=== PATIENT | female | born 1990 | race Caucasian/White ===

== ENCOUNTER 2017-03-13 17:46 | Emergency (ER) | payer OTHER ==
[~2017-03-13] VITALS: Ht 157.5 cm; Wt 49.9 kg
[~2017-03-13 17:46] MED LIST: AMBIEN10 MG PO; AMBIEN12.5 MG PO; AMBIEN5 MG PO; ATARAX HCL25 MG PO; ATIVAN1 M1 PO; ATIVAN1 MG PO; CEPHALEXIN500 M2 PO; CLARITIN10 MG PO; DASETTA PO; DILANTIN100 M1 PO; ETODOLAC ER400 MG PO; ETODOLAC400 M2 PO; FLEXERIL10 MG PO; HYDROCODONE BIT PO; HYDROCODONE BIT1 T52 PO; INDERAL20 M1 PO; KEPPRA500 MG PO; KLONOPIN1 MG PO; MAXALT10 MG PO; NEURONTIN100 MG PO; NEURONTIN300 MG PO; NEURONTIN600 MG PO; NORCO 5/325 MG1 TAB PO; ORTHO TRI-CYCLE1 TA1 PO; PERCOCET 5/3251 TAB PO; PRILOSEC40 MG PO; PROZAC10 MG PO; TRI CYCLEN PO; ULTRAM50 MG PO; VIMPAT200 MG PO; VOLTAREN75 M1 PO; XANAX1 MG PO; ZANTAC150 MG PO
--- NOTE | 2017-03-13 17:46 | NUR ---
Patient was BIBA at this time.
[2017-03-13 17:54] VITALS: BP 113/72
--- NOTE | 2017-03-13 19:10 | NUR ---
Dr. pérez evaluating patient.
[2017-03-13] MEDS ORDERED: MORPHINE SULFATE 4 MG/ML SYR IM ONE ×2 (19:25→21:00)
[2017-03-13] MEDS ORDERED: METHOCARBAMOL 500 MG TAB PO SCH (19:25)
--- NOTE | 2017-03-13 19:29 | NUR ---
PT TAKEN TO BED 6
--- NOTE | 2017-03-13 19:30 | NUR ---
27 Y/O F BIBA FOR EVALUATION OF LBP S/P L5 FUSION 2 WEEKS AGO. HX SEIZURE DISORDER, FIBROMYALGIA, PTSD, ANXIETY. C/O PAIN 10/10 AT THE MOMENT. NO S/S OF DISTRESS NOTED AT THE MOMENT.
--- NOTE | 2017-03-13 19:52 | NUR ---
PT TAKEN OFF THE UNIT TO CT VIA WHEELCHAIR ACCOMPANIED BY JENELLE BIRCH
--- NOTE | 2017-03-13 20:02 | NUR ---
PT BACK ON UNIT FROM HAVING CT DONE.
[2017-03-13] MEDS ORDERED: KETOROLAC 30 MG/ML VIAL IVP ONE (20:50)
[2017-03-13 21:23] VITALS: BP 109/71
--- NOTE | 2017-03-13 21:24 | NUR ---
Patient discharged with v/s stable. Written and verbal after care instructions given and explained. Patient alert, oriented and verbalized understanding of instructions. Ambulatory with steady gait. All questions addressed prior to discharge. ID band removed. Patient advised to follow up with PMD. Rx of ROBAXIN given. Patient educated on indication of medication including possible reaction and side effects. Opportunity to ask questions provided and answered.
== END 2017-03-13 21:24 | disposition home or self-care (01) ==
LOC: MED 17:46
DX: M54.5 Low back pain (principal); J45.909 Unspecified asthma, uncomplicated; Z98.890 Other specified postprocedural states; Z79.899 Other long term (current) drug therapy
CPT/HCPCS: 72131; 81002; 81025; 96372; 99284; J2270

== ENCOUNTER 2017-03-29 15:33 | Emergency (ER) | payer OTHER ==
[~2017-03-29] VITALS: Ht 157.5 cm; Wt 49.9 kg
--- NOTE | 2017-03-29 15:33 | NUR ---
Patient was BIBA at this time and taken to bed 05 via gurney per EMS.
--- NOTE | 2017-03-29 15:37 | NUR ---
Dr. Garrett evaluating patient at bedside.
[2017-03-29] MEDS ORDERED: NACL 0.9% 1,000 ML IV SCH (15:40)
[2017-03-29] MEDS ORDERED: ONDANSETRON 4 MG/2 ML VIAL IVP ONE (15:40)
[2017-03-29 15:42] VITALS: BP 97/65
[2017-03-29] MEDS ORDERED: MORPHINE SULFATE 4 MG/ML SYR IVP ONE ×2 (15:45→17:25)
[2017-03-29] MEDS ORDERED: NACL 0.9% 1,000 ML IV ONE (15:45)
--- NOTE | 2017-03-29 15:50 | NUR ---
PATIENT PRESENTS TO ED WITH BIB EMS WITH C/O BACK PAIN X 4 DAYS WORSE TODAY, HX: SEIZURE, FIBROMYALGIA, MIGRANES, APPENDECTOMY, FUSION ON 02/25/17, CHOLECYSTECTOMY RX; KEPRA 15MG BID, VIMPAT 200MG BID, CLONAZEPAM 1MG BID, GABAPENTIN 600MG TID; DENIES N/V/D; SKIN IS PINK/WARM/DRY; AAOX4 WITH EVEN AND STEADY GAIT; LUNGS CLEAR BL; HR EVEN AND REGULAR; PT DENIES ANY FEVER, CP, SOB, OR COUGH AT THIS TIME; PATIENT STATES PAIN OF 9/10 AT THIS TIME; VSS; PATIENT POSITIONED FOR COMFORT; HOB ELEVATED; BEDRAILS UP X2; BED DOWN. ER MD MADE AWARE OF PT STATUS.
--- NOTE | 2017-03-29 16:59 | NUR ---
Patient going to CT via wheelchair per tech.
--- NOTE | 2017-03-29 17:14 | NUR ---
Patient back from CT via wheelchair per tech.
--- NOTE | 2017-03-29 17:21 | NUR ---
PT C/O PAIN 08/[address], DR OLMOS NOTIFIED, AWAITING ORDERS, PT PLACED BACK ON MONITOR, IV SALINE IN PLACED, AWAITING ORDERS, WILL CONTINUE TO MONITOR
[2017-03-29] MEDS ORDERED: cefTRIAXone 1,000 MG VIAL ONE (17:42)
[2017-03-29 18:44] VITALS: BP 103/73
--- NOTE | 2017-03-29 18:44 | NUR ---
Patient discharged with v/s stable. Written and verbal after care instructions given and explained. Patient alert, oriented and verbalized understanding of instructions. Ambulatory with by parent. All questions addressed prior to discharge. ID band removed. Patient advised to follow up with PMD. Rx of KATHERIN GONZALEZ given. Patient educated on indication of medication including possible reaction and side effects. Opportunity to ask questions provided and answered.
== END 2017-03-29 18:44 | disposition home or self-care (01) ==
LOC: MED 15:33
DX: M54.5 Low back pain (principal); N39.0 Urinary tract infection, site not specified; M79.7 Fibromyalgia; J45.909 Unspecified asthma, uncomplicated; Z98.890 Other specified postprocedural states; Z88.8 Allergy status to other drugs, medicaments and biological substances; Z91.040 Latex allergy status
CPT/HCPCS: 36415; 72132; 80053; 81001; 81025; 82150; 83605; 83690; 85025; 87040; 87086; 96361; 96365; 96375; 96376; 99285; J0696; J2270; J2405; J7030; J7060

== ENCOUNTER 2017-04-30 00:20 | Emergency (ER) | payer OTHER ==
[~2017-04-30] VITALS: Ht 157.5 cm; Wt 47.7 kg
[~2017-04-30 00:20] MED LIST changes: +ALPR1TAB2 PO; -AMBIEN10 MG PO; -AMBIEN12.5 MG PO; -AMBIEN5 MG PO; -ATARAX HCL25 MG PO; -ATIVAN1 M1 PO; -ATIVAN1 MG PO; +CEPH500C16 PO; -CEPHALEXIN500 M2 PO; -CLARITIN10 MG PO; +CLON1TAB PO; -DASETTA PO; +DICL-388 PO; -DILANTIN100 M1 PO; -ETODOLAC ER400 MG PO; -ETODOLAC400 M2 PO; -FLEXERIL10 MG PO; +GABA300C PO; +HYDR-4446 PO; -HYDROCODONE BIT PO; -HYDROCODONE BIT1 T52 PO; +IND20 PO; -INDERAL20 M1 PO; +KEP500 PO; -KEPPRA500 MG PO; -KLONOPIN1 MG PO; +LACO200T PO; +LORA10TA19 PO; -MAXALT10 MG PO; -NEURONTIN100 MG PO; -NEURONTIN300 MG PO; -NEURONTIN600 MG PO; -NORCO 5/325 MG1 TAB PO; -ORTHO TRI-CYCLE1 TA1 PO; -PERCOCET 5/3251 TAB PO; -PRILOSEC40 MG PO; -PROZAC10 MG PO; +RANI-287 PO; +RIZA10TA16 PO; +TRAM50TA94 PO; -TRI CYCLEN PO; -ULTRAM50 MG PO; -VIMPAT200 MG PO; -VOLTAREN75 M1 PO; -XANAX1 MG PO; -ZANTAC150 MG PO; +ZOLP10TA1 PO; +[UNRECOGNIZED DRUG - CODE] PO
[2017-04-30 00:23] VITALS: BP 116/51
--- NOTE | 2017-04-30 01:17 | NUR ---
PATIENT WHEELCHAIR ASSISTED TO BED 3
--- NOTE | 2017-04-30 01:30 | NUR ---
PATIENT PRESENTS TO ED WITH C/O SOB WITH COUGH X 1 DAY. PT. STATES BEEN SMOKING NOCOTINE VIA VAPORIZER. HX.FIBROMALAGIA, BACK SX., EPILEPSI, RACING HR, PTSD. PT DENIES N/V/D; SKIN IS PINK/WARM/DRY; AAOX4 WITH EVEN AND STEADY GAIT; LUNGS CLEAR BL; HR EVEN AND REGULAR; PT DENIES ANY FEVER OR CP AT THIS TIME; PATIENT STATES PAIN OF 9/10 AT THIS TIME; VSS; PATIENT POSITIONED FOR COMFORT; HOB ELEVATED; BEDRAILS UP X2; BED DOWN. ER MD MADE AWARE OF PT STATUS.
[2017-04-30] MEDS ORDERED: MORPHINE SULFATE 4 MG/ML SYR IM ONE ×2 (01:50→02:30)
[2017-04-30 03:21] VITALS: BP 102/89
--- NOTE | 2017-04-30 03:21 | NUR ---
Patient discharged with v/s stable. Written and verbal after care instructions given and explained. Patient alert, oriented and verbalized understanding of instructions. Ambulatory with steady gait. All questions addressed prior to discharge. ID band removed. Patient advised to follow up with PMD. Rx of NORCO AND PREDNISONE given. Patient educated on indication of medication including possible reaction and side effects. Opportunity to ask questions provided and answered.
== END 2017-04-30 03:21 | disposition home or self-care (01) ==
LOC: MED 00:20
CPT/HCPCS: 81002; 81025; 96372; 99284; J2270

== ENCOUNTER 2017-11-05 10:04 | Emergency (ER) | payer OTHER ==
[~2017-11-05] VITALS: Ht 154.9 cm; Wt 52.2 kg
[~2017-11-05 10:04] MED LIST changes: +ACET-8386 PO; -HYDR-4446 PO; +TRAM50TA1 PO; -TRAM50TA94 PO
[2017-11-05 10:23] VITALS: BP 124/73
[2017-11-05] MEDS ORDERED: MORPHINE SULFATE 4 MG/ML SYR IVP ONE ×2 (10:50→12:25)
[2017-11-05] MEDS ORDERED: ONDANSETRON 4 MG/2 ML VIAL IVP ONE (10:50)
[2017-11-05] MEDS ORDERED: diphenhydrAMINE 50 MG/ML VIAL IVP ONE (10:50)
[2017-11-05] MEDS ORDERED: NACL 0.9% 1,000 ML IV ONE (10:50)
[2017-11-05 11:11] LABS: APPEARANCE,URINE SL CLOUDY (CLEAR); BILIRUBIN,URINE NEGATIVE (NEGATIVE); BLOOD, URINE NEGATIVE (NEGATIVE); COLOR,URINE YELLOW (YELLOW); LEUKOCYTE ESTERASE ,URINE 1+ (NEGATIVE); NITRITE, URINE NEGATIVE (NEGATIVE); UGLUCOSE NEGATIVE (NEGATIVE)
[2017-11-05 11:20] LABS: ANION GAP 12.8 (8-16); CARBON DIOXIDE 27.1 mmol/L (21-32); CREATININE 0.8 mg/dL (0.6-1.3); POTASSIUM 3.9 mmol/L (3.5-5.1)
[2017-11-05 11:20] LABS: RBC,URINE 0-5 (RARE) /HPF (0-5); WBC,URINE 6-15 (FEW) /HPF (0-5)
[2017-11-05 11:26] LABS: ALBUMIN 3.3 g/dL (3.4-5.0); TOTAL BILIRUBIN 0.1 mg/dL (0.0-1.0)
--- NOTE | 2017-11-05 11:34 | NUR ---
PT CAME IN C/O [place], NAUSEA, AND DIZZINESS X2 DAYS. A&OX4. STATES HAVING A MINOR APETITE AND NOT DRINKING ENOUGH FLUIDS D/T NAUSEA. STATES FALLING OFF A BED AT [facility] X1 WEEK AGO. DENIES FALLING OR HITTING HEAD AT THIS TIME. MOTHER AT CHAIRSIDE WITH PT. IV FLUID HYDRATION STATRED. TAKEN TO CT WITH TECH AT 11:34.
--- NOTE | 2017-11-05 11:42 | NUR ---
PT RETURNED FROM CT.
[2017-11-05] MEDS ORDERED: cefTRIAXone 1,000 MG VIAL ONE (11:57)
[2017-11-05 12:33] VITALS: BP 116/70
--- NOTE | 2017-11-05 12:52 | NUR ---
Patient discharged with v/s stable, pain managed, no dizziness, and no nausea. Written and verbal after care instructions given and explained. Patient alert, oriented and verbalized understanding of instructions. Ambulatory with steady gait. All questions addressed prior to discharge. ID band removed. Patient advised to follow up with PMD. Rx of CIPRO given. Patient educated on indication of medication including possible reaction and side effects. Opportunity to ask questions provided and answered.
== END 2017-11-05 12:52 | disposition home or self-care (01) ==
LOC: MED 10:04
DX: N39.0 Urinary tract infection, site not specified (principal); J45.909 Unspecified asthma, uncomplicated; Z79.899 Other long term (current) drug therapy; Z88.8 Allergy status to other drugs, medicaments and biological substances; Z91.040 Latex allergy status
CPT/HCPCS: 36415; 72131; 80053; 81001; 81025; 87086; 96361; 96365; 96375; 99285; J0696; J1200; J2270; J2405; J7030; J7060

== ENCOUNTER 2017-11-07 16:05 | Observation (INO) | payer OTHER ==
[~2017-11-07] VITALS: Ht 154.9 cm; Wt 52.2 kg
[2017-11-07 16:50] VITALS: BP 137/90
[2017-11-07] MEDS ORDERED: HYDROmorphone 1 MG/ML AMP IVP ONE (18:05)
[2017-11-07] MEDS ORDERED: diphenhydrAMINE 50 MG/ML VIAL IVP ONE (18:05)
[2017-11-07 18:35] LABS: APPEARANCE,URINE HAZY (CLEAR); BILIRUBIN,URINE NEGATIVE (NEGATIVE); BLOOD, URINE TRACE-I (NEGATIVE); COLOR,URINE YELLOW (YELLOW); LEUKOCYTE ESTERASE ,URINE TRACE (NEGATIVE); NITRITE, URINE NEGATIVE (NEGATIVE); PH,URINE 5.5 (5.0-9.0); UGLUCOSE NEGATIVE (NEGATIVE)
[2017-11-07 18:41] LABS: BARBITURATE, URINE POS. ng/ml (NEG <=200); BENZODIAZEPINE, URINE POS. ng/mL (NEG <=200); CANNABINOID, URINE NEG. ng/mL (NEG <=50); COCAINE, URINE NEG. ng/mL (NEG <=300); OPIATE, URINE NEG. ng/mL (NEG <=2000); PHENCYCLIDINE SCREEN,URINE NEG. ng/mL (NEG <=25); RBC,URINE 3-10 (FEW) /HPF (0-5)
[2017-11-07 19:04] LABS: BASOPHILS # (AUTO) 0.2 K/uL (0.00-0.22); BASOPHILS % (AUTO) 2.4 % (0.0-2.0); EOSINOPHILS % (AUTO) 0.5 % (0.0-4.0); LYMPHOCYTES # (AUTO) 1.1 K/uL (2.5-16.5); LYMPHOCYTES % (AUTO) 15.4 % (20.5-51.1); MEAN CORPUSCULAR HEMOGLOBIN 30 pg (27-31); MEAN CORPUSCULAR HGB CONC 33 g/dL (33-37); MEAN CORPUSCULAR VOLUME 90 fL (80-94); MONOCYTES # (AUTO) 0.4 K/uL (0.8-1.0); MONOCYTES % (AUTO) 6.1 % (1.7-9.3); NEUTROPHILS # (AUTO) 5.6 K/uL (1.8-7.7); NEUTROPHILS % (AUTO) 75.6 % (42.2-75.2); PLATELET COUNT (AUTO) 319 K/uL (140-450); RED CELL DISTRIBUTION WIDTH 12.1 % (11.6-13.7); WHITE BLOOD COUNT (AUTO) 7.3 K/uL (4.8-10.8)
[2017-11-07 19:20] LABS: ALBUMIN 3.5 g/dL (3.4-5.0); ANION GAP 12.2 (8-16); ASPARTATE AMINOTRANSFERASE 18 U/L (15-37); CARBON DIOXIDE 26.7 mmol/L (21-32); CHLORIDE 103 mmol/L (98-107); CREATININE 0.8 mg/dL (0.6-1.3); GFR ARICAN-AMERICAN 111 mL/min (>90); GLUCOSE 88 mg/dL (74-106); POTASSIUM 3.9 mmol/L (3.5-5.1); SODIUM SERUM 138 mmol/L (136-145); TOTAL BILIRUBIN 0.3 mg/dL (0.0-1.0); UREA NITROGEN, BLOOD 9 mg/dL (7-18)
[2017-11-07] MEDS ORDERED: NACL 0.9% 1,000 ML IV ONE (20:20)
[2017-11-07] MEDS ORDERED: HYDROmorphone PFS 2 MG/ML SYR IVP ONE ×2 (20:20→22:20)
[2017-11-07] MEDS ORDERED: cefTRIAXone 1,000 MG VIAL ONE (22:31)
[2017-11-07] MEDS ORDERED: NACL 0.9% 1,000 ML IV SCH (22:33)
[2017-11-07] MEDS ORDERED: ONDANSETRON 4 MG/2 ML VIAL IVP PRN (22:35)
[2017-11-07] MEDS ORDERED: MORPHINE SULFATE 2 MG/ML SYR IVP PRN (22:35)
[2017-11-07] MEDS ORDERED: HYDROcodone/APAP 5/325 MG 1 TAB TAB PO PRN (22:35)
[2017-11-07] MEDS ORDERED: ACETAMINOPHEN 325 MG TAB PO PRN (22:35)
[2017-11-07] MEDS ORDERED: ALPRAZolam 0.5 MG TAB PO PRN (22:40)
[2017-11-07] MEDS ORDERED: ZOLPIDEM 10 MG TAB PO PRN (22:40)
[2017-11-07 23:10] VITALS: BP 106/76
[2017-11-07 23:19] VITALS: BP 119/74
[2017-11-08] MEDS ORDERED: GABAPENTIN 300 MG CAP PO SCH ×2 (00:40→09:00)
[2017-11-08] MEDS ORDERED: levETIRAcetam 500 MG TAB PO SCH ×2 (00:40→09:00)
[2017-11-08] MEDS ORDERED: PROPRANOLOL 20 MG TAB PO SCH ×2 (00:40→09:00)
[2017-11-08] MEDS ORDERED: ENOXAPARIN 40 MG/0.4 ML SYR SUBQ SCH (09:00)
== END 2017-11-08 02:35 | disposition left against medical advice (07) ==
LOC: MED 16:05 → MTU 22:40
PROVIDERS: ADMIT Hospitalist; ATTEND Hospitalist
DX: M54.5 Low back pain (principal); J45.909 Unspecified asthma, uncomplicated; G40.909 Epilepsy, unspecified, not intractable, without status epilepticus
CPT/HCPCS: 36415; 70450; 71045; 74176; 80053; 80305; 81001; 81025; 82550; 84484; 85025; 87081; 87086; 93005; 96361; 96365; 96375; 96376; 99285; G0378; G0482; J0696; J1170; J1200; J2270; J7030; Q0092

== ENCOUNTER 2018-01-03 10:19 | Emergency (ER) | payer OTHER ==
[~2018-01-03] VITALS: Ht 154.9 cm; Wt 52.2 kg
[2018-01-03] MEDS ORDERED: predniSONE 20 MG TAB PO ONE (10:25)
[2018-01-03] MEDS ORDERED: IPRATROPIUM 0.02% 0.5 MG/2.5 ML NEBU INH ONE (10:25)
[2018-01-03 10:32] VITALS: BP 113/76
[2018-01-03] MEDS ORDERED: levETIRAcetam 1,000 MG in NACL 0.9% 100 ML IV ONE (10:40)
[2018-01-03] MEDS ORDERED: LORazepam 2 MG/ML VIAL IVP ONE (10:40)
--- NOTE | 2018-01-03 10:40 | NUR ---
PATIENT [facility] PRESENTS TO ED WITH witnessed seizure x 2 at home and x1 with ems--tonic clonic no injury resulted---pt has been out of Vimpat 200mg bid x 2 days post ictal 1 min hx----ptsd,seizure,anxiety rx---impat,keppra,gabapentin,clonazepam,propranolol,zantac,dasetta,percocet,cyc lobenz,tizamidine,ambien,loratadine,fioricex,nabumeto; DENIES N/V/D; SKIN IS PINK/WARM/DRY; AAOX4 WITH EVEN AND STEADY GAIT; LUNGS CLEAR BL; HR EVEN AND REGULAR; PT DENIES ANY FEVER, CP, SOB, OR COUGH AT THIS TIME; PATIENT STATES PAIN OF 10/10 AT THIS TIME; VSS; PATIENT POSITIONED FOR COMFORT; HOB ELEVATED; BEDRAILS UP X2; BED DOWN. ER MD MADE AWARE OF PT STATUS.
--- NOTE | 2018-01-03 10:44 | NUR ---
XRAY AT BEDSIDE
[2018-01-03 11:20] LABS: BASOPHILS # (AUTO) 0.2 K/uL (0.00-0.22); BASOPHILS % (AUTO) 4.4 % (0.0-2.0); EOSINOPHILS # (AUTO) 0.1 K/uL (0-0.4); EOSINOPHILS % (AUTO) 2.1 % (0.0-4.0); HEMATOCRIT 34.1 % (36-48); HEMOGLOBIN 11.6 g/dL (12.0-16.0); LYMPHOCYTES # (AUTO) 2.3 K/uL (2.5-16.5); MEAN CORPUSCULAR HEMOGLOBIN 30 pg (27-31); MEAN CORPUSCULAR HGB CONC 34 g/dL (33-37); MEAN CORPUSCULAR VOLUME 88 fL (80-94); MONOCYTES # (AUTO) 0.5 K/uL (0.8-1.0); MONOCYTES % (AUTO) 9.1 % (1.7-9.3); NEUTROPHILS # (AUTO) 2.6 K/uL (1.8-7.7); NEUTROPHILS % (AUTO) 44.4 % (42.2-75.2); PLATELET COUNT (AUTO) 261 K/uL (140-450); RED BLOOD CELL COUNT(AUTO) 3.86 MIL/uL (4.20-5.40); RED CELL DISTRIBUTION WIDTH 13.4 % (11.6-13.7); WHITE BLOOD COUNT (AUTO) 5.7 K/uL (4.8-10.8)
[2018-01-03] MEDS ORDERED: COMMUNICATION ORDER MC STA ×2 (11:22→11:43)
[2018-01-03] MEDS ORDERED: MORPHINE SULFATE 10 MG/ML SYR IVP ONE (11:25)
[2018-01-03] MEDS ORDERED: ONDANSETRON 4 MG/2 ML VIAL IVP ONE (11:25)
[2018-01-03 11:26] LABS: CARBON DIOXIDE 22.1 mmol/L (21-32); CREATININE 0.7 mg/dL (0.6-1.3); POTASSIUM 4.1 mmol/L (3.5-5.1)
[2018-01-03] MEDS ORDERED: MORPHINE SULFATE 2 MG/ML SYR ONE (11:45)
--- NOTE | 2018-01-03 11:45 | NUR ---
VIMPAT IV ORDER CHANGE TO PO
[2018-01-03] MEDS ORDERED: MORPHINE SULFATE 4 MG/ML SYR ONE (11:46)
[2018-01-03] MEDS ORDERED: VIMPAT 100MG TAB PO ONE (12:00)
--- NOTE | 2018-01-03 12:06 | NUR ---
PT TAKEN TO CT
--- NOTE | 2018-01-03 12:11 | NUR ---
POST MORPHINE ADMINISTRATION VS BP 111/66, HR 96, SPO2 98, RR 20
--- NOTE | 2018-01-03 12:30 | NUR ---
PT RETURNED FROM CT
--- NOTE | 2018-01-03 12:35 | NUR ---
PT WHEEL CHAIR ASSISTED TO THE RESTROOM WITH PT'S MOTHER ASSISTANCE
[2018-01-03 14:06] VITALS: BP 111/81
--- NOTE | 2018-01-03 14:06 | NUR ---
Patient discharged with v/s stable. Written and verbal after care instructions given and explained. Patient alert, oriented and verbalized understanding of instructions. Wheel Chair Assisted with to car. All questions addressed prior to discharge. ID band removed. Patient advised to follow up with PMD. Rx of vimpat/percocet/zofran given. Patient educated on indication of medication including possible reaction and side effects. Opportunity to ask questions provided and answered.
== END 2018-01-03 14:06 | disposition home or self-care (01) ==
LOC: MED 10:19
DX: G40.909 Epilepsy, unspecified, not intractable, without status epilepticus (principal); G89.4 Chronic pain syndrome; K21.9 Gastro-esophageal reflux disease without esophagitis; M79.7 Fibromyalgia; F32.9 Major depressive disorder, single episode, unspecified; M41.9 Scoliosis, unspecified; Z91.040 Latex allergy status; Z88.8 Allergy status to other drugs, medicaments and biological substances
CPT/HCPCS: 36415; 70450; 71045; 72128; 72131; 80048; 85025; 93005; 96365; 96375; 99285; J1953; J2060; J2270; J2405; Q0092; J7644

== ENCOUNTER 2018-01-16 14:47 | Emergency (ER) | payer OTHER ==
[~2018-01-16] VITALS: Ht 157.5 cm; Wt 52.2 kg
[2018-01-16 15:03] VITALS: BP 127/91
--- NOTE | 2018-01-16 15:03 | NUR ---
PATIENT TO BED #4
--- NOTE | 2018-01-16 15:30 | NUR ---
PATIENT BIB AMS WITH S/P FALL BACK FROM 1 FOOT STOOL TRYING TO REACH SOMETHING. ELECTRIC FAN FELL OVER HER. DENIES LOC,NO VOMITING,DENIES NECK PAIN. HX:FIBROMYALGIA,BACK SURG., HEART PROB. PATIENT STATES PAIN OF 9/10 AT THIS TIME; VSS; PATIENT POSITIONED FOR COMFORT; HOB ELEVATED; BEDRAILS UP X2; BED DOWN. ER MD MADE AWARE OF PT STATUS.
--- NOTE | 2018-01-16 15:37 | NUR ---
Patient being evaluated by physician at bedside.
[2018-01-16] MEDS ORDERED: HYDROmorphone 1 MG/ML AMP IVP ONE (15:45)
[2018-01-16] MEDS ORDERED: NACL 0.9% 1,000 ML IV ONE (15:45)
[2018-01-16] MEDS ORDERED: diphenhydrAMINE 50 MG/ML VIAL IVP ONE (15:45)
[2018-01-16] MEDS ORDERED: LORazepam 2 MG/ML VIAL IVP ONE (15:45)
[2018-01-16] MEDS ORDERED: HYDROmorphone PFS 2 MG/ML SYR IVP SCH (16:12)
[2018-01-16] MEDS ORDERED: HYDROmorphone PFS 2 MG/ML SYR ONE (16:15)
--- NOTE | 2018-01-16 16:48 | NUR ---
PT IS TAKEN TO CT VIA RAJEEV
--- NOTE | 2018-01-16 17:00 | NUR ---
PT RETURNED FROM CT
[2018-01-16] MEDS ORDERED: HYDROmorphone PFS 2 MG/ML SYR IM ONE (17:55)
[2018-01-16 18:11] VITALS: BP 110/68
--- NOTE | 2018-01-16 18:11 | NUR ---
Patient discharged with v/s stable. Written and verbal after care instructions given and explained. Patient alert, oriented and verbalized understanding of instructions. Wheel Chair Assisted with by parent. All questions addressed prior to discharge. ID band removed. Patient advised to follow up with PMD. Rx of TRAMADOL, VISTARIL given. Patient educated on indication of medication including possible reaction and side effects. Opportunity to ask questions provided and answered.
== END 2018-01-16 18:11 | disposition home or self-care (01) ==
LOC: MED 14:47
DX: M54.5 Low back pain (principal); G89.4 Chronic pain syndrome; K21.9 Gastro-esophageal reflux disease without esophagitis; Z91.040 Latex allergy status; Z88.6 Allergy status to analgesic agent; Z88.8 Allergy status to other drugs, medicaments and biological substances; W18.39XA Other fall on same level, initial encounter; Y93.89 Activity, other specified; Y92.89 Other specified places as the place of occurrence of the external cause; Y99.8 Other external cause status
CPT/HCPCS: 72131; 96361; 96372; 96374; 96375; 99285; J1170; J1200; J2060; J7030

== ENCOUNTER 2018-02-11 21:35 | Emergency (ER) | payer OTHER ==
[~2018-02-11] VITALS: Ht 154.9 cm; Wt 52.2 kg
[~2018-02-11 21:35] MED LIST changes: -IND20 PO; +PROP20TA75 PO
[2018-02-11 21:46] VITALS: BP 146/94
[2018-02-11] MEDS ORDERED: KETOROLAC 60 MG/2 ML VIAL IM ONE (21:55)
--- NOTE | 2018-02-11 21:56 | NUR ---
PT TAKEN BY WHEELCHAIR TO ER CHAIR D
[2018-02-11 21:57] VITALS: BP 146/94
--- NOTE | 2018-02-11 21:57 | NUR ---
PATIENT PRESENTS TO ED WITH C/O BILATERAL HIP PAIN S/P FALL X 1 HR. MED HX CHRONIC LOWER BACK PAIN , SEIZURE DISORDER , TACHYCARDIA, FIBROMILAGIA, SURGERY TO LOWER BACK, PST, ARTHRITIS PT DENIES N/V/D; SKIN IS PINK/WARM/DRY; AAOX4 WITH EVEN AND STEADY GAIT; LUNGS CLEAR BL; HR EVEN AND REGULAR; PT DENIES ANY FEVER, CP, SOB, OR COUGH AT THIS TIME; PATIENT STATES PAIN OF 10/10 AT THIS TIME; VSS; PATIENT POSITIONED FOR COMFORT; HOB ELEVATED; BEDRAILS UP X2; BED DOWN. ER MD MADE AWARE OF PT STATUS.
[2018-02-11] MEDS ORDERED: ACETAMINOPHEN EXTRA STRENGTH 500 MG TAB PO ONE (22:00)
--- NOTE | 2018-02-11 22:03 | NUR ---
DR HOOVER AT CHAIRS TO SEE PT. DR HOOVER SPEAKING QUIETLY WITH PATIENT. PT UPSET THAT DR HOOVER STATED HE WOULD NOT GIVE HER MORPHINE BUT HE HAD ORDERED A CT SCAN. PT YELLING LOUDLY AND VERBALLY ABUSIVE TO STAFF AND DR HOOVER. Addendum: 02/11/[address] SCAN OF PELVIS
--- NOTE | 2018-02-11 22:08 | NUR ---
PATIENT ELOPED FROM FACILITY. DISCHARGE INSTRUCTIONS NOT GIVEN TO PATIENT. DR. HOOVER NOTIFIED. PT LEFT YELLING AT ER STAFF TO "SHUT UP"
== END 2018-02-11 22:08 | disposition left against medical advice (07) ==
LOC: MED 21:35
DX: M25.551 Pain in right hip (principal); Z72.89 Other problems related to lifestyle; K21.9 Gastro-esophageal reflux disease without esophagitis; Z91.040 Latex allergy status; Z88.6 Allergy status to analgesic agent; Z88.8 Allergy status to other drugs, medicaments and biological substances
CPT/HCPCS: 99281

== ENCOUNTER 2018-12-18 10:12 | Emergency (ER) | payer OTHER ==
[~2018-12-18] VITALS: Ht 157.5 cm; Wt 47.6 kg
[~2018-12-18 10:12] MED LIST changes: -ACET-8386 PO; -ALPR1TAB2 PO; -CEPH500C16 PO; -CLON1TAB PO; +CYCL10TA13 PO; -DICL-388 PO; +DOXE10CA PO; +FLONAS NS; -GABA300C PO; -KEP500 PO; +LEVE750T3 PO; -RIZA10TA16 PO; +SUVO10TA PO; +TIZA4CAP PO; -TRAM50TA1 PO; -ZOLP10TA1 PO; +[UNRECOGNIZED DRUG - CODE] PO; +[UNRECOGNIZED DRUG - CODE] PO
[2018-12-18 10:23] VITALS: BP 107/67
--- NOTE | 2018-12-18 10:30 | NUR ---
28Y/F BIB MOTHER WITH C/O AB PAIN SINCE LAST NIGHT, PT STATES SHE ATE OATMEAL THIS MORNING AND THE PAIN GOT WORST. LMB: 12/17/18, BM ACTIVE X 4 QUAD, NAUSEA, -N/D. PT AAOX4, VSS AT THIS TIME, BED DOWN, BEDRAIL UP X 1, ER MD AWARE AND NOTIFIED OF PT STATUS. PMH: PROLAPSED RECTUM, LOWER G.I BLEEDING RX: SEE MED LIST
[2018-12-18] MEDS ORDERED: NACL 0.9% 500 ML IV ONE (11:04)
--- NOTE | 2018-12-18 11:04 | NUR ---
Patient being evaluated by physician at bedside.
[2018-12-18] MEDS ORDERED: ONDANSETRON 4 MG/2 ML VIAL IVP ONE (11:05)
[2018-12-18] MEDS ORDERED: fentaNYL 0.05 MG/ML VIAL IVP ONE ×2 (11:05→13:50)
[2018-12-18 11:31] LABS: BASOPHILS % (AUTO) 0.5 % (0.0-2.0); EOSINOPHILS # (AUTO) 0.1 K/uL (0-0.4); EOSINOPHILS % (AUTO) 0.6 % (0.0-4.0); HEMATOCRIT 32.3 % (36-48); HEMOGLOBIN 10.7 g/dL (12.0-16.0); LYMPHOCYTES # (AUTO) 1.8 K/uL (2.5-16.5); LYMPHOCYTES % (AUTO) 19.9 % (20.5-51.1); MEAN CORPUSCULAR HEMOGLOBIN 30 pg (27-31); MEAN CORPUSCULAR HGB CONC 33 g/dL (33-37); MEAN CORPUSCULAR VOLUME 89.9 fL (80-94); MONOCYTES # (AUTO) 0.6 K/uL (0.8-1.0); MONOCYTES % (AUTO) 6.4 % (1.7-9.3); NEUTROPHILS # (AUTO) 6.6 K/uL (1.8-7.7); NEUTROPHILS % (AUTO) 72.6 % (42.2-75.2); PLATELET COUNT (AUTO) 223 K/uL (140-450); RED BLOOD CELL COUNT(AUTO) 3.59 MIL/uL (4.20-5.40); RED CELL DISTRIBUTION WIDTH 13.1 % (11.6-13.7); WHITE BLOOD COUNT (AUTO) 9.1 K/uL (4.8-10.8)
[2018-12-18 11:36] LABS: ANION GAP 9.2 (8-16); CARBON DIOXIDE 28.1 mmol/L (21-32); CREATININE 0.8 mg/dL (0.6-1.3); POTASSIUM 4.3 mmol/L (3.5-5.1)
[2018-12-18 11:42] LABS: ALBUMIN 3.3 g/dL (3.4-5.0); TOTAL BILIRUBIN 0.3 mg/dL (0.0-1.0)
[2018-12-18 14:33] VITALS: BP 92/57
--- NOTE | 2018-12-18 14:33 | NUR ---
Patient discharged with v/s stable. Written and verbal after care instructions given and explained. Patient alert, oriented and verbalized understanding of instructions. Ambulatory with steady gait. All questions addressed prior to discharge. ID band removed. Patient advised to follow up with PMD. Rx of lactulose, and mineral oil given. Patient educated on indication of medication including possible reaction and side effects. Opportunity to ask questions provided and answered.
== END 2018-12-18 14:33 | disposition home or self-care (01) ==
LOC: MED 10:12
DX: R10.9 Unspecified abdominal pain (principal); R11.2 Nausea with vomiting, unspecified; K21.9 Gastro-esophageal reflux disease without esophagitis; Z79.899 Other long term (current) drug therapy; Z91.040 Latex allergy status; Z88.6 Allergy status to analgesic agent; Z88.8 Allergy status to other drugs, medicaments and biological substances
CPT/HCPCS: 36415; 74176; 80053; 81025; 83690; 85025; 96361; 96374; 96375; 96376; 99284; J2405; J3010; J7030

== ENCOUNTER 2018-12-22 10:46 | Emergency (ER) | payer OTHER ==
[~2018-12-22] VITALS: Ht 154.9 cm; Wt 47.2 kg
[2018-12-22 10:47] VITALS: BP 152/61
--- NOTE | 2018-12-22 10:54 | NUR ---
28 YO FEMALE BIB SELF VIA WHEELCHAIR C/O N/V & MID ABDOMINAL PAIN RADIATING TO MID BACK. SKIN IS PINK/WARM/DRY; AAOX4 . LUNGS CLEAR BL. PT DENIES ANY FEVER, CP, SOB, OR COUGH AT THIS TIME; PATIENT STATES PAIN OF 0/10 AT THIS TIME.PATIENT POSITIONED FOR COMFORT; HOB ELEVATED; BEDRAILS UP X2; BED DOWN. ER MD MADE AWARE OF PT STATUS.
[2018-12-22] MEDS ORDERED: NACL 0.9% 1,000 ML IV SCH (12:01)
[2018-12-22] MEDS ORDERED: fentaNYL 0.05 MG/ML VIAL IVP ONE (12:05)
[2018-12-22] MEDS ORDERED: ONDANSETRON 4 MG/2 ML VIAL IVP ONE (12:05)
[2018-12-22 12:31] LABS: BASOPHILS % (AUTO) 0.5 % (0.0-2.0); EOSINOPHILS % (AUTO) 0.3 % (0.0-4.0); HEMATOCRIT 39.5 % (36-48); HEMOGLOBIN 13.1 g/dL (12.0-16.0); LYMPHOCYTES % (AUTO) 34.9 % (20.5-51.1); MEAN CORPUSCULAR HEMOGLOBIN 30 pg (27-31); MEAN CORPUSCULAR HGB CONC 33 g/dL (33-37); MEAN CORPUSCULAR VOLUME 89.2 fL (80-94); MONOCYTES # (AUTO) 0.6 K/uL (0.8-1.0); NEUTROPHILS # (AUTO) 4.9 K/uL (1.8-7.7); NEUTROPHILS % (AUTO) 57.3 % (42.2-75.2); PLATELET COUNT (AUTO) 273 K/uL (140-450); RED BLOOD CELL COUNT(AUTO) 4.42 MIL/uL (4.20-5.40); RED CELL DISTRIBUTION WIDTH 13.4 % (11.6-13.7); WHITE BLOOD COUNT (AUTO) 8.5 K/uL (4.8-10.8)
[2018-12-22 12:53] LABS: ANION GAP 20.2 (8-16); CARBON DIOXIDE 19.6 mmol/L (21-32); CREATININE 0.9 mg/dL (0.6-1.3); POTASSIUM 3.8 mmol/L (3.5-5.1)
[2018-12-22 12:59] LABS: ALBUMIN 4.1 g/dL (3.4-5.0); TOTAL BILIRUBIN 0.6 mg/dL (0.0-1.0)
--- NOTE | 2018-12-22 13:32 | NUR ---
REPORTED GIVEN TO ERIK CUELLO
--- NOTE | 2018-12-22 14:15 | NUR ---
Patient being evaluated by DR SORIANO at bedside.
[2018-12-22 14:17] VITALS: BP 141/67
--- NOTE | 2018-12-22 14:17 | NUR ---
Patient discharged with v/s stable. Written and verbal after care instructions given and explained. Patient verbalized understanding. Ambulatory with steady gait. All questions addressed prior to discharge. Advised to follow up with PMD.
[2018-12-22 14:32] LABS: APPEARANCE,URINE SL CLOUDY (CLEAR); BILIRUBIN,URINE NEGATIVE (NEGATIVE); BLOOD, URINE NEGATIVE (NEGATIVE); COLOR,URINE YELLOW (YELLOW); LEUKOCYTE ESTERASE ,URINE 1+ (NEGATIVE); NITRITE, URINE NEGATIVE (NEGATIVE); UGLUCOSE NEGATIVE (NEGATIVE)
[2018-12-22 14:39] LABS: RBC,URINE 0-5 (RARE) /HPF (0-5); WBC,URINE 60-80 /HPF (0-5)
== END 2018-12-22 14:17 | disposition home or self-care (01) ==
LOC: MED 10:46
DX: N39.0 Urinary tract infection, site not specified (principal); K92.1 Melena; G43.909 Migraine, unspecified, not intractable, without status migrainosus; M79.7 Fibromyalgia; I47.1 Supraventricular tachycardia; R03.0 Elevated blood-pressure reading, without diagnosis of hypertension; F17.200 Nicotine dependence, unspecified, uncomplicated; Z88.6 Allergy status to analgesic agent; Z88.8 Allergy status to other drugs, medicaments and biological substances; Z91.040 Latex allergy status; Z91.048 Other nonmedicinal substance allergy status; Z90.49 Acquired absence of other specified parts of digestive tract; Z90.89 Acquired absence of other organs
CPT/HCPCS: 36415; 80053; 81001; 81025; 83690; 85025; 86886; 86900; 86901; 87086; 96374; 96375; 99283; J2405; J3010; J7030

== ENCOUNTER 2019-02-09 16:10 | Inpatient (IN) | payer OTHER ==
[~2019-02-09] VITALS: Ht 157.5 cm; Wt 47.2 kg
[2019-02-09 16:16] VITALS: BP 118/91
--- NOTE | 2019-02-09 16:31 | NUR ---
PT SENT TO LOBBY TO WAIT FOR ED BED.
--- NOTE | 2019-02-09 16:51 | NUR ---
PATIENT AMBULATED TO ER BED 2.
--- NOTE | 2019-02-09 17:00 | NUR ---
PT BIB FAMILY TO THE ED WITH THE CHIEF C/O NOT FEELING WELL SINCE YESTERDAY STARTED [facility] EAR PAIN. PT HAD EAR INFECTION COUPLE OF WEEKS AGO. PT REPORTS GENERALIZED BODY PAIN INCLUDING CHEST PAIN 9/10 AT THIS TIME. TACHYCARDIC. BP WNL. HAD FEVER 101.7 TODAY. DID NOT TAKE MEDS FOR PAIN. TEMPERATURE 99.8 AT THIS TIME. REPORTS DIARRHEA X1 TODAY. NO BLOOD IN DIARRHEA. LUNGS DIMINISHED. ABDOMEN SOFT, ROUND AND NON-TENDER. ACTIVE BOWEL SOUND. ER MD AWARE OF PT STATUS AND VS.
[2019-02-09] MEDS ORDERED: NACL 0.9% 1,000 ML IV ONE ×2 (17:40→18:25)
[2019-02-09 18:15] LABS: BASOPHILS # (AUTO) 0.1 K/uL (0.00-0.22); BASOPHILS % (AUTO) 0.6 % (0.0-2.0); EOSINOPHILS % (AUTO) 0.1 % (0.0-4.0); HEMATOCRIT 35.6 % (36-48); HEMOGLOBIN 11.8 g/dL (12.0-16.0); LYMPHOCYTES # (AUTO) 1.3 K/uL (2.5-16.5); LYMPHOCYTES % (AUTO) 7.8 % (20.5-51.1); MEAN CORPUSCULAR HEMOGLOBIN 30 pg (27-31); MEAN CORPUSCULAR HGB CONC 33 g/dL (33-37); MEAN CORPUSCULAR VOLUME 88.5 fL (80-94); MONOCYTES # (AUTO) 1.2 K/uL (0.8-1.0); MONOCYTES % (AUTO) 7.1 % (1.7-9.3); NEUTROPHILS # (AUTO) 14.5 K/uL (1.8-7.7); NEUTROPHILS % (AUTO) 84.4 % (42.2-75.2); PLATELET COUNT (AUTO) 242 K/uL (140-450); RED BLOOD CELL COUNT(AUTO) 4.02 MIL/uL (4.20-5.40); WHITE BLOOD COUNT (AUTO) 17.1 K/uL (4.8-10.8)
--- NOTE | 2019-02-09 18:43 | NUR ---
SWAB TAKEN BY LAB.
[2019-02-09 18:48] LABS: ALBUMIN 3.6 g/dL (3.4-5.0); CARBON DIOXIDE 27.3 mmol/L (21-32); CREATININE 0.9 mg/dL (0.6-1.3); POTASSIUM 4.3 mmol/L (3.5-5.1); TOTAL BILIRUBIN 0.6 mg/dL (0.0-1.0)
--- NOTE | 2019-02-09 19:14 | NUR ---
REPORT GIVEN TO ACTIVITIES DIRECTOR RN FOR CONTNUITY OF CARE.
[2019-02-09 19:38] LABS: FREE T4 (FREE THYROXINE) 1.1 ng/dL (0.76-1.46); THYROID STIMULATING HORMONE 0.71 uIU/mL (0.34-3.74)
[2019-02-09] MEDS ORDERED: MORPHINE SULFATE 4 MG/ML SYR IVP ONE (19:40)
[2019-02-09 20:00] VITALS: BP 109/70
[2019-02-09] MEDS ORDERED: ACETAMINOPHEN 325 MG TAB PO PRN (20:00)
[2019-02-09] MEDS ORDERED: NON-FORMULARY ITEM (Tizanidine HCl* (Zanaflex*) 4 MG) PO SCH (20:00)
[2019-02-09] MEDS ORDERED: TEMAZEPAM 15 MG CAP PO PRN (20:00)
[2019-02-09 20:03] LABS: APPEARANCE,URINE CLEAR (CLEAR); BILIRUBIN,URINE NEGATIVE (NEGATIVE); BLOOD, URINE NEGATIVE (NEGATIVE); COLOR,URINE YELLOW (YELLOW); LEUKOCYTE ESTERASE ,URINE TRACE (NEGATIVE); NITRITE, URINE NEGATIVE (NEGATIVE); PH,URINE 5.5 (5.0-9.0); UGLUCOSE NEGATIVE (NEGATIVE)
[2019-02-09] MEDS ORDERED: guaiFENesin/CODEINE 100/10MG 5 ML UDC PO PRN (20:05)
[2019-02-09] MEDS ORDERED: cefTRIAXone 1,000 MG VIAL ONE (20:08)
[2019-02-09 20:27] LABS: RBC,URINE NONE SEEN /HPF (0-5)
[2019-02-09 20:28] LABS: WBC,URINE 0-5 /HPF (0-5)
--- NOTE | 2019-02-09 20:40 | NUR ---
PT TRANSFERRED TO [facility] ROOM 125A. NO SIGNS OF ACUTE DISTRESS AT THIS TIME.
--- NOTE | 2019-02-09 20:45 | NUR ---
PT ARRIVED ON UNIT VIA GURNEY TO ROOM 125A. REPORT GIVEN BY CEE. PT IN STABLE CONDITION.
[2019-02-09] MEDS ORDERED: NABUMETONE 750 MG PO SCH (21:00)
[2019-02-09] MEDS ORDERED: PROPRANOLOL HYDROCHLORIDE PO SCH (21:00)
[2019-02-09] MEDS ORDERED: NON-FORMULARY ITEM (Lacosamide (Vimpat) 200 MG) PO SCH (21:00)
[2019-02-09] MEDS ORDERED: NON-FORMULARY ITEM (Ranitidine Hcl* (Zantac*) 150 MG) PO SCH (21:00)
--- NOTE | 2019-02-09 21:00 | NUR ---
PT WAS MOVED TO ROOM 110A DUE TO ROOMMATE HAVING MALE VISITOR, PT SAID THERE IS A MALE IN ROOMATE'S SIDE AND SHE WOULD LIKE TO HAVING A SITTER DUE TO HAVING POST TRAUMATIC STRESS D/O. PT MOVED CLOSER TO NURSES STATION WHERE SHE CAN BE OBSERVED. PT AOX4 SKIN INTACT EXCEPT FOR OLD "CUTTING" SELF MUTILATING SCARS ON RIGHT WRIST/FOREARM. PT SAID THAT SHE STILL HAS PAIN AND THAT MORPHINE IS WEARING OFF. PT ALSO SAID DURING ADMISSION QUESTIONS THAT SHE HAS A VERY DIFFICULT TIME FALLING ASLEEP AND THAT SHE USUALLY TAKES BELSOMRA 20MG, DOXEPIN HCL 25MG, AND [id number] AT HOME. [facility] FOR COVING ORDERS REGARDING PT REQUESTS.
--- NOTE | 2019-02-09 21:10 | NUR ---
PT MRSA SWAB DONE V/S FOLLOWS T 97.8 P 111 R 18 B/P 109/70 02 99% ON ROOM AIR.
--- NOTE | 2019-02-09 21:30 | NUR ---
JANITOR SUPERVISOR [facility] CALLED JAYLENE ANSWERED, JANITOR SUPERVISOR, DR. BROWN PAGED AND HE CALLED BACK AND ORDERED A NORCO 5/325MG PO/PRN FOR SEVER PAIN, WELL PT MEDICATIONS SHE SAID SHE TAKES AT NIGHT( BELSOMRA/KLONOPIN AND/(DOXEPIN HCL- WHICH WAS ORDERED FOR THE AM .. MOVED TO PM WHEN PT TAKES MEDICATION AT HOME.) DR. BROWN SAID THAT SHE CAN HAVE THE MEDICATIONS THAT SHE TAKES AT NIGHT TIME.
[2019-02-09] MEDS ORDERED: HYDROcodone/APAP 5/325 MG 1 TAB TAB PO PRN (23:40)
[2019-02-10] MEDS: NACL 0.9% 1,000 ML IV SCH ×2 (00:27→10:23)
--- NOTE | 2019-02-10 00:30 | NUR ---
PT IN BED V/S FOLLOWS T 98.9 P 99 R 18 B/P 108/78 02 96 ON ROOM AIR. PT REQUEST MEDICATION FOR SEVERE GENERALIZED PAIN, GIVEN 1 TAB NORCO PO/PRN, WILL MONITOR FOR EFFECT.
[2019-02-10] MEDS ORDERED: levETIRAcetam 500 MG TAB PO SCH (02:00)
--- NOTE | 2019-02-10 03:51 | NUR ---
PT C/O THAT SHE IS STILL IN A LOT OF PAIN, AND IS REQUESTING A STRONGER MEDICATION. PULMONARY GROUP CALLED, AWAITING CALL BACK FROM DR BROWN.
--- NOTE | 2019-02-10 04:02 | NUR ---
DR. BROWN CALLED BACK WITH ORDERS FOR MORPHINE 4MG Q4H IVP PRN.
[2019-02-10] MEDS: MORPHINE SULFATE 4 MG/ML SYR IVP PRN ×5 (05:10→21:10)
--- NOTE | 2019-02-10 05:27 | NUR ---
PT GIVEN MORPHINE IVP FOR SEVERE PAIN. WILL MONITOR FOR PAIN
--- NOTE | 2019-02-10 07:30 | NUR ---
Received bedside report from pm nurse Elsy. Pt in bed, awake, no c/o discomfort, no signs of distress. Right AC IV intact with ongoing NS @ 70ml/hr. Call light within reach.
[2019-02-10 08:00] VITALS: BP 109/78
[2019-02-10 08:16] LABS: BASOPHILS % (AUTO) 0.2 % (0.0-2.0); EOSINOPHILS # (AUTO) 0.1 K/uL (0-0.4); EOSINOPHILS % (AUTO) 0.6 % (0.0-4.0); HEMATOCRIT 32.1 % (36-48); HEMOGLOBIN 10.8 g/dL (12.0-16.0); LYMPHOCYTES # (AUTO) 1.7 K/uL (2.5-16.5); LYMPHOCYTES % (AUTO) 12.6 % (20.5-51.1); MEAN CORPUSCULAR HEMOGLOBIN 30 pg (27-31); MEAN CORPUSCULAR HGB CONC 34 g/dL (33-37); MEAN CORPUSCULAR VOLUME 89.2 fL (80-94); MONOCYTES # (AUTO) 1.2 K/uL (0.8-1.0); MONOCYTES % (AUTO) 8.3 % (1.7-9.3); NEUTROPHILS # (AUTO) 10.8 K/uL (1.8-7.7); NEUTROPHILS % (AUTO) 78.3 % (42.2-75.2); PLATELET COUNT (AUTO) 220 K/uL (140-450); WHITE BLOOD COUNT (AUTO) 13.8 K/uL (4.8-10.8)
[2019-02-10] MEDS ORDERED: DOXEPIN 10 MG CAP PO SCH (09:00)
[2019-02-10] MEDS ORDERED: NORETHINDRONE ETHINYL ESTRAD PO SCH ×2 (09:00→20:00)
[2019-02-10] MEDS ORDERED: PROPRANOLOL 20 MG TAB PO SCH (09:00)
[2019-02-10] MEDS: FAMOTIDINE 20 MG TAB PO SCH ×2 (09:09→21:10)
[2019-02-10] MEDS: LORATADINE 10 MG TAB PO SCH (09:11)
[2019-02-10] MEDS ORDERED: CALER120 PO (10:08)
[2019-02-10] MEDS: AZITHROMYCIN 500 MG in DEXTROSE 5% 250 ML IV SCH (11:23)
[2019-02-10 12:00] VITALS: BP 129/83
[2019-02-10] MEDS: VERAPAMIL 120 MG CAPER PO SCH (12:20)
--- NOTE | 2019-02-10 12:30 | NUR ---
Pt c/o feeling nauseous, no episode of vomiting. Ice chips & emesis bag provided, HOB elevated. Pt states unable to eat lunch at this time. Dr. Mcintosh paged.
--- NOTE | 2019-02-10 13:00 | NUR ---
Pt cont to c/o nausea. Received call back from Dr Mcintosh & notified of pt complaint. Received new order for ondansetron. Order noted & carried out.
[2019-02-10] MEDS: ONDANSETRON 4 MG/2 ML VIAL IVP PRN (13:22)
--- NOTE | 2019-02-10 13:22 | NUR ---
Ondansetron administered for c/o nausea. Pt resting in bed at this time, mother at bedside. Call light within reach.
--- NOTE | 2019-02-10 14:22 | NUR ---
Ondansetron reassessment: No c/o nausea at this time. Per pt, she feels "much better." No signs of distress. Will cont to monitor.
[2019-02-10 16:00] VITALS: BP 99/73
[2019-02-10] MEDS ORDERED: SUVOREXANT 10 MG PO SCH (17:00)
--- NOTE | 2019-02-10 19:20 | NUR ---
Report given to pm nurse Nat.
--- NOTE | 2019-02-10 19:21 | NUR ---
RECEIVED REPORT FROM DAY SHIFT NURSE CARLOS A-RN AT BEDSIDE. PT RESTING IN BED, AOX4, ON ROOM AIR WITH RIGHT AC #22G RUNNING NS @70ML/HR. DISCUSSED PLAN OF CARE AND PT VERBALIZED UNDERSTANDING. NO S/S OF RESPIRATORY DISTRESS OR DISCOMFORT NOTED AT THIS TIME. BED IN LOWEST POSITION, BED BREAKS ON, BOTH SIDE RAILS UP AND SEIZURE PRECAUTIONS IN PLACE. BEDSIDE TABLE AND CALL LIGHT ARE WITHIN REACH. WILL CONTINUE TO MONITOR.
[2019-02-10 20:00] VITALS: BP 99/64
[2019-02-10] MEDS: [UNRECOGNIZED DRUG - MIXTURE] PO SCH (20:00)
--- NOTE | 2019-02-10 20:00 | NUR ---
VITAL SIGNS TAKEN AND TOLERATED WELL. PT C/O PAIN 05/11 HOWEVER PAIN MEDICATION IS NOT AVAILABLE UNTIL 2105- PT AWARE AND WILL WAIT UNTIL THEN. PT REQUESTED TO HAVE SCHEDULED MEDICATION BELSOMRA @2099 INSTEAD OF 1999. SCHEDULED MEDICATION DASETTA GIVEN AND TOLERATED WELL. NO S/S OF RESPIRATORY DISTRESS OR DISCOMFORT NOTED AT THIS TIME. WILL CONTINUE TO MONITOR.
[2019-02-10] MEDS ORDERED: SUVOREXANT 20 MG PO SCH (21:00)
[2019-02-10] MEDS: SUVOREXANT 20 MG PO SCH (21:07)
[2019-02-10] MEDS: clonazePAM 0.5 MG TAB PO SCH (21:08)
[2019-02-10] MEDS: NABUMETONE 750 MG PO SCH (21:09)
[2019-02-10] MEDS: DOXEPIN 10 MG CAP PO SCH (21:10)
--- NOTE | 2019-02-10 21:10 | NUR ---
SCHEDULED MEDICATION GIVEN AND TOLERATED WELL. MORPHINE GIVEN FOR PAIN AND BELSOMRA GIVEN ALONG WITH SCHEDULED MEDICAION. NO S/S OF RESPIRATORY DISTRESS OR DISCOMFORT NOTED AT THIS TIME. WILL CONTINUE TO MONITOR.
--- NOTE | 2019-02-10 22:59 | NUR ---
SPOKE WITH PHARMACY REGARDING KEPPRA DOSAGE- PHARMACIST STATED THAT THE ORDER STATES SHE TAKES KEPPRA 2,250MG BID. PHARMACIST HAD LEFT A NOTE WITH [facility] TO CHECK THE ORDER DURING DAY SHIFT HOWEVER ORDER IS STILL PENDING. SPOKE WITH PATIENT AND SHE STATED SHE THINKS SHE TAKES KEPPRA 3GRAMS BID HOWEVER SHE IS UNSURE. PILL BOTTLES ARE BACK AT HOME WITH HER MOTHER. I ASKED IF HER MOTHER IS VISITING TOMORROW IF SHE COULD BRING THE KEPPRA BOTTLE TO HAVE IT VERIFIED ONCE AGAIN BY PHARMACY. PT VERBALIZED UNDERSTANDING. CHARGE NURSE JOHN-CHICO IS AWARE. PT RESTING IN BED. NO S/S OF RESPIRATORY DISTRESS OR DISCOMFORT NOTED AT THIS TIME. WILL CONTINUE TO MONITOR.
[2019-02-11] VITALS: BP 111/57
--- NOTE | 2019-02-11 | NUR ---
VITAL SIGNS TAKEN AND TOLERATED WELL. NO S/S OF RESPIRATORY DISTRESS OR DISCOMFORT NOTED AT THIS TIME. WILL CONTINUE TO MONITOR.
[2019-02-11] MEDS: NACL 0.9% 1,000 ML IV SCH ×2 (00:08→15:54)
[2019-02-11] MEDS: MORPHINE SULFATE 4 MG/ML SYR IVP PRN ×6 (01:12→21:47)
--- NOTE | 2019-02-11 02:00 | NUR ---
PT SLEEPING IN BED. NO S/S OF RESPIRATORY DISTRESS OR DISCOMFORT NOTED AT THIS TIME. WILL CONTINUE TO MONITOR.
[2019-02-11 04:00] VITALS: BP 98/64
--- NOTE | 2019-02-11 04:00 | NUR ---
VITAL SIGNS TAKEN AND TOLERATED WELL. NO S/S OF RESPIRATORY DISTRESS OR DISCOMFORT NOTED AT THIS TIME. WILL CONTINUE TO MONITOR.
--- NOTE | 2019-02-11 05:07 | NUR ---
PT C/O PAIN 05/11 AND MEDICATED WITH MORPHINE. PT TOLERATED WELL. NO S/S OF RESPIRATORY DISTRESS OR DISCOMFORT NOTED AT THIS TIME. WILL CONTINUE TO MONITOR.
[2019-02-11 06:18] LABS: CARBON DIOXIDE 27.3 mmol/L (21-32); CREATININE 0.8 mg/dL (0.6-1.3); POTASSIUM 3.3 mmol/L (3.5-5.1)
[2019-02-11 06:24] LABS: BASOPHILS % (AUTO) 0.6 % (0.0-2.0); EOSINOPHILS # (AUTO) 0.2 K/uL (0-0.4); EOSINOPHILS % (AUTO) 3.1 % (0.0-4.0); HEMATOCRIT 33.5 % (36-48); HEMOGLOBIN 11.2 g/dL (12.0-16.0); LYMPHOCYTES # (AUTO) 2.3 K/uL (2.5-16.5); LYMPHOCYTES % (AUTO) 29.6 % (20.5-51.1); MEAN CORPUSCULAR HEMOGLOBIN 30 pg (27-31); MEAN CORPUSCULAR HGB CONC 33 g/dL (33-37); MEAN CORPUSCULAR VOLUME 89.9 fL (80-94); MONOCYTES # (AUTO) 0.9 K/uL (0.8-1.0); MONOCYTES % (AUTO) 10.9 % (1.7-9.3); NEUTROPHILS # (AUTO) 4.4 K/uL (1.8-7.7); NEUTROPHILS % (AUTO) 55.8 % (42.2-75.2); PLATELET COUNT (AUTO) 254 K/uL (140-450); RED BLOOD CELL COUNT(AUTO) 3.73 MIL/uL (4.20-5.40); RED CELL DISTRIBUTION WIDTH 14.1 % (11.6-13.7); WHITE BLOOD COUNT (AUTO) 7.9 K/uL (4.8-10.8)
--- NOTE | 2019-02-11 07:09 | NUR ---
ENDORSED PT CARE TO DAY SHIFT NURSE CANDELARIA FOR CONTINUITY OF CARE.
--- NOTE | 2019-02-11 07:30 | NUR ---
RECEIVED PT AAOX4. NO SOB NOTED. NO C/O PAIN AT THIS TIME. IV TO RT AC PATENT AND INTACT. CHEST, DIMINISHED AIR ENTRY TO THE BASES OTHERWISE CLEAR. ABDOMEN SOFT, BOWEL SOUNDS PRESENT. BED ON LOWEST POSITION, WITH 3 SIDE RAILS RAISED UP. BED ALARM ON. INSTRUCTED PT TO CALL FOR ASSISTANCE, CALL LIGHT WITHIN REACH, PT VERBALIZED UNDERSTANDING.
[2019-02-11 08:00] VITALS: BP 123/82
[2019-02-11] MEDS: ONDANSETRON 4 MG/2 ML VIAL IVP PRN (08:48)
[2019-02-11] MEDS: guaiFENesin/CODEINE 100/10MG 5 ML UDC PO PRN ×2 (08:57→12:59)
[2019-02-11] MEDS: LORATADINE 10 MG TAB PO SCH (08:58)
[2019-02-11] MEDS: FAMOTIDINE 20 MG TAB PO SCH ×2 (08:58→20:43)
[2019-02-11] MEDS ORDERED: [UNRECOGNIZED DRUG - MIXTURE] PO SCH (09:00)
[2019-02-11] MEDS: NABUMETONE 750 MG PO SCH ×2 (09:00→20:49)
[2019-02-11] MEDS: VERAPAMIL 120 MG CAPER PO SCH (09:00)
--- NOTE | 2019-02-11 09:20 | NUR ---
PT AMBULATING TO THE BATHROOM WITH STEADY GAIT, ACTIVITY TOLERATED.
[2019-02-11] MEDS: AZITHROMYCIN 500 MG in DEXTROSE 5% 250 ML IV SCH (09:49)
[2019-02-11] MEDS ORDERED: CYCLOBENZAPRINE 10 MG TAB PO PRN (09:50)
[2019-02-11] MEDS ORDERED: levETIRAcetam 500 MG TAB PO SCH ×4 (10:30→21:00)
--- NOTE | 2019-02-11 11:30 | NUR ---
PT'S MOTHER BROUGHT PT'S KEPPRA 500 MG FROM HOME. BELONGING'S LIST ADJUST. MEDS SENT TO PHARMACY FOR SAFE KEEPING. PER ADELAIDA PHARMACIST NOT NOT ADMINISTER THE KEPPRA ORDERED, HE STILL NEEDS TO VERIFY IT WITH DR. MEHTA.
[2019-02-11 12:00] VITALS: BP 135/82
--- NOTE | 2019-02-11 14:06 | NUR ---
Didier called clinic [phone] and spoke with Rhea and made a follow-up appointment with on duty on 02/16/19 @ 10am at [address] [place] [address] . Follow-up schedule given to patient, Charge nurse notified. Addendum: 02/11/19 at 1419 by Kathia Alon[facility] is open from 8am-5pm and instructed patient to come at 10 am and if not able to come that time is to make sure she comes before 5pm, patient verbalized understanding.
[2019-02-11 16:00] VITALS: BP 115/79
--- NOTE | 2019-02-11 19:15 | NUR ---
PT AWAKE, ON THE PHONE. NO SOB NOTED, NO COMPLAINTS MADE. WILL ENDORSE TO NEXT NURSE FOR CONTINUITY OF CARE.
--- NOTE | 2019-02-11 19:28 | NUR ---
RECEIVED REPORT FROM ROSANGELA GOLDEN DAYSHIFT NURSE FOR CONTINUITY OF CARE, PT IN STABLE CONDITION.
[2019-02-11 20:00] VITALS: BP 107/72
--- NOTE | 2019-02-11 20:00 | NUR ---
PT IN LOW BED WITH SIDE RAILS UP X2 AND CALL MAK IN REACH. LUNG SOUNDS DIMINISHED ON RIGHT SIDE, AND BOWEL SOUNDS PRESENT. V/S FOLLOWS T 98.1 P 98 R 18 B/P 107/72 02 96% ON ROOM AIR. IV SITE ON RIGHT AC INTACT AND FLUSHED PATENT. PT HAS N/S RUNNING AT 70MLS/HR.
--- NOTE | 2019-02-11 20:30 | NUR ---
PT REMINDED ABOUT SPUTUM CULTURE, SPECIMEN CUP PLACED BESIDE THE BED.
[2019-02-11] MEDS: [UNRECOGNIZED DRUG - MIXTURE] PO SCH (20:39)
[2019-02-11] MEDS: levETIRAcetam 500 MG TAB PO SCH (20:40)
[2019-02-11] MEDS: clonazePAM 0.5 MG TAB PO SCH (20:42)
[2019-02-11] MEDS: DOXEPIN 10 MG CAP PO SCH (20:42)
--- NOTE | 2019-02-11 21:00 | NUR ---
PT GIVEN ALL SCHEDULED MEDICATION AT THIS TIME.
--- NOTE | 2019-02-11 22:00 | NUR ---
PT C/O OF 9/10 GENERALIZED PAIN ESPECIALLY IN HER BACK, REQUESTING HER MORPHINE WHICH WAS GIVEN 4MG/1ML IVP GIVEN WILL MONITOR FOR EFFECT.
[2019-02-11] MEDS: SUVOREXANT 20 MG PO SCH (22:33)
[2019-02-12] VITALS: BP 94/60
--- NOTE | 2019-02-12 00:15 | NUR ---
PT IN BED SLEEPING BUT AROUSABLE TO NAME AND LIGHT TOUCH, V/S FOLLOWS T 97.9 P 73 R 18 B/P 94/60 02 95% ON ROOM AIR. IV SITE ON RIGHT AC INTACT AND FLUSHED PT, RUNNING N/S ORDERED. PT BED LOW SIDE RAILS UP X2 AND CALL MAK IN REACH.
[2019-02-12] MEDS: MORPHINE SULFATE 4 MG/ML SYR IVP PRN ×3 (01:41→11:24)
--- NOTE | 2019-02-12 02:00 | NUR ---
/PT CO GENERALIZED PAIN ESPECIALLY IN BACK, GIVEN 4 MG/1ML OF MORPHINE IVP. PT ALSO C/O NAUSEA AND IS GIVEN ZOFRAN IVP ORDERED. WILL MONITOR PT FOR PAIN AND NAUSEA.
[2019-02-12] MEDS: ONDANSETRON 4 MG/2 ML VIAL IVP PRN (02:01)
[2019-02-12 04:00] VITALS: BP 99/64
--- NOTE | 2019-02-12 04:00 | NUR ---
PT IN BED ASLEEP, BUT AROUSABLE TO LIGHT TOUCH AND NAME. PT V/S FOLLOWS T 97.4 P 96 R 18 B/P 99/64 02 98% ON ROOM AIR.
[2019-02-12 05:05] VITALS: BP 94/60
[2019-02-12] MEDS: NACL 0.9% 1,000 ML IV SCH (05:25)
--- NOTE | 2019-02-12 06:39 | NUR ---
PT REQUEST MORPHINE FOR 9/10 PAIN , GIVEN IVP MORPHINE PRN ORDERED.
--- NOTE | 2019-02-12 07:15 | NUR ---
REPORT GIVEN TO NOEL GOLDEN DAYSHIFT NURSE AT BEDSIDE FOR CONTINUITY OF CARE, PT IN STABLE CONDITION.
--- NOTE | 2019-02-12 07:20 | NUR ---
RECEIVED HAND OFF REPORT AT PT BEDSIDE FROM WORM SORTER NURSE. PT IS AWAKE A/OX4 AND IN STABLE CONDITION. WILL CONTINUE TO MONITOR.
--- NOTE | 2019-02-12 07:50 | NUR ---
INITIAL ASSESSMENT DONE, VITALS DONE, VITALS ARE WITHIN NORMAL LIMITS. IV IS INFUSING AT 70ML/HR IV SITE IS PATENT WITH NO SIGNS OF INFILTRATION. LUNG SOUNDS ARE CLEAR, BILATERALLY. PT HAS NO COMPLAINTS OF PAIN. SKIN IS INTACT. WITH RIGHT WRIST SCARS FROM SELF INFLICTED WOUNDS OF CUTTING. PT IS STABLE AND APPEARS IN NO APPARENT DISTRESS. WILL CONTINUE TO MONITOR
[2019-02-12 08:00] VITALS: BP 109/72
--- NOTE | 2019-02-12 08:50 | NUR ---
ADMINISTERED MORNING MEDICATIONS. 2 MEDICATIONS DID NOT SCAN BUT STILL MANUALLY INPUTTED THEM IN THE EMAR AND ADMINISTERED THEM. PT TOLERATED TAKING HER MEDICATIONS ORALLY. IV IS INFUSING AZITHROMYCIN 250ML/HR PT FAMILY MEMBER IS AT THE BEDSIDE. PT IS APPEARS STABLE AND IN NO APPARENT DISTRESS. ALL SAFETY MEASURES ARE IN PLACE, WILL CONTINUE TO MONITOR.
[2019-02-12] MEDS: LORATADINE 10 MG TAB PO SCH (08:57)
[2019-02-12] MEDS: FAMOTIDINE 20 MG TAB PO SCH (08:57)
[2019-02-12] MEDS: levETIRAcetam 500 MG TAB PO SCH (08:57)
[2019-02-12] MEDS: VERAPAMIL 120 MG CAPER PO SCH (08:58)
[2019-02-12] MEDS: AZITHROMYCIN 500 MG in DEXTROSE 5% 250 ML IV SCH (08:59)
[2019-02-12] MEDS: NABUMETONE 750 MG PO SCH (08:59)
--- NOTE | 2019-02-12 11:00 | NUR ---
PT AMBULATED TO RESTROOM. PT AMBULATED WELL, MOM AT BEDSIDE. PT APPEARS STABLE AND IN NO APPARENT DISTRESS. WILL CONTINUE TO MONITOR.
[2019-02-12 12:30] VITALS: BP 106/72
--- NOTE | 2019-02-12 12:30 | NUR ---
DR ROMERO AT PT BEDSIDE DISCUSSING DISCHARGE. INFORMED DR. ROMERO ABOUT PTS POTASSIUM LEVEL OF 3.[address] ROMERO PRESCRIBED POTASSIUM 40MEQ PO FOR PT. PREPARING PT FOR DISCHARGE
[2019-02-12] MEDS ORDERED: LEVO750T2 PO (12:42)
[2019-02-12 12:52] VITALS: BP 106/72
[2019-02-12] MEDS ORDERED: POTASSIUM CHLORIDE 10 MEQ TABER PO SCH (13:00)
--- NOTE | 2019-02-12 14:44 | NUR ---
REMOVED IV CATH FROM PT.IV CATH TIP IS IN PLACE. REMOVED TELEMONITOR. REMOVED PT ID BANDS. PT ESCORTED TO FRONT WHERE HER MOM PICKED HER UP. PT LEFT WITH ALL PERSONAL BELONGINGS AND MEDICATIONS FROM PHARMACY. PT WAS STABLE AND IN NO APPARENT DISTRESS. ON TIME OF DISCHARGE. Addendum: 02/12/19 at 1446 by Maria De Jesus Chau RN ESCORTED PT TO [facility] VIA WHEELCHAIR
== END 2019-02-12 14:30 | disposition home or self-care (01) | DRG 113 ==
LOC: MED 16:10 → MMU 20:03 → MTU 21:37
PROVIDERS: ADMIT Internal Medicine Pulmonary Disease; ATTEND Internal Medicine Pulmonary Disease
DX: J02.9 Acute pharyngitis, unspecified (principal); I47.1 Supraventricular tachycardia; E86.0 Dehydration; R13.10 Dysphagia, unspecified; H66.90 Otitis media, unspecified, unspecified ear; G40.909 Epilepsy, unspecified, not intractable, without status epilepticus; M79.7 Fibromyalgia; G43.909 Migraine, unspecified, not intractable, without status migrainosus; K21.9 Gastro-esophageal reflux disease without esophagitis; G89.29 Other chronic pain; F43.10 Post-traumatic stress disorder, unspecified; Z88.6 Allergy status to analgesic agent; Z91.040 Latex allergy status; Z88.8 Allergy status to other drugs, medicaments and biological substances; Z91.048 Other nonmedicinal substance allergy status; Z79.899 Other long term (current) drug therapy; Z90.49 Acquired absence of other specified parts of digestive tract
CPT/HCPCS: 36415; 71046; 80048; 80053; 81001; 84439; 84443; 84484; 85025; 87081; 87804; 93005; 96365; 96375; 99285; J0456; J0696; J2270; J2405; J7030; J7060

== ENCOUNTER 2020-01-31 16:30 | Emergency (ER) | payer OTHER ==
[~2020-01-31] VITALS: Ht 157.5 cm; Wt 68.0 kg
[~2020-01-31 16:30] MED LIST changes: +CALER120 PO; +LEVO750T2 PO; -PROP20TA75 PO
[2020-01-31 16:33] VITALS: BP 177/107
[2020-01-31 17:17] LABS: APPEARANCE,URINE HAZY (CLEAR); BILIRUBIN,URINE NEGATIVE (NEGATIVE); BLOOD, URINE 3+ (NEGATIVE); COLOR,URINE YELLOW (YELLOW); LEUKOCYTE ESTERASE ,URINE NEGATIVE (NEGATIVE); NITRITE, URINE NEGATIVE (NEGATIVE); PH,URINE 5.5 (5.0-9.0); UGLUCOSE NEGATIVE (NEGATIVE)
[2020-01-31] MEDS: NACL 0.9% 1,000 ML IV ONE (17:17)
[2020-01-31] MEDS: MORPHINE SULFATE 4 MG/ML SYR IVP ONE ×2 (17:18→18:12)
[2020-01-31] MEDS: ONDANSETRON 4 MG/2 ML VIAL IVP ONE (17:19)
[2020-01-31 17:25] LABS: BASOPHILS # (AUTO) 0.1 K/uL (0.00-0.22); BASOPHILS % (AUTO) 1.6 % (0.0-2.0); EOSINOPHILS # (AUTO) 0.1 K/uL (0-0.4); EOSINOPHILS % (AUTO) 2.8 % (0.0-4.0); HEMATOCRIT 37.8 % (36-48); HEMOGLOBIN 12.6 g/dL (12.0-16.0); LYMPHOCYTES # (AUTO) 2.2 K/uL (2.5-16.5); LYMPHOCYTES % (AUTO) 45.7 % (20.5-51.1); MEAN CORPUSCULAR HEMOGLOBIN 30 pg (27-31); MEAN CORPUSCULAR HGB CONC 33 g/dL (33-37); MEAN CORPUSCULAR VOLUME 89.3 fL (80-94); MONOCYTES # (AUTO) 0.5 K/uL (0.8-1.0); NEUTROPHILS # (AUTO) 1.9 K/uL (1.8-7.7); NEUTROPHILS % (AUTO) 38.9 % (42.2-75.2); PLATELET COUNT (AUTO) 354 K/uL (140-450); RED BLOOD CELL COUNT(AUTO) 4.23 MIL/uL (4.20-5.40); RED CELL DISTRIBUTION WIDTH 13.9 % (11.6-13.7); WHITE BLOOD COUNT (AUTO) 4.9 K/uL (4.8-10.8)
[2020-01-31 17:25] LABS: RBC,URINE 50-80 /HPF (0-5); WBC,URINE 0-5 /HPF (0-5)
[2020-01-31 17:33] LABS: ALBUMIN 3.5 g/dL (3.4-5.0); ANION GAP 16.2 (8-16); CARBON DIOXIDE 24.5 mmol/L (21-32); CREATININE 0.9 mg/dL (0.6-1.3); POTASSIUM 4.7 mmol/L (3.5-5.1); TOTAL BILIRUBIN 0.2 mg/dL (0.0-1.0)
[2020-01-31 19:39] VITALS: BP 140/101
== END 2020-01-31 19:40 | disposition home or self-care (01) ==
LOC: MED 16:30
DX: O26.891 Other specified pregnancy related conditions, first trimester (principal); R10.30 Lower abdominal pain, unspecified; K21.9 Gastro-esophageal reflux disease without esophagitis; Z3A.01 Less than 8 weeks gestation of pregnancy; Z79.899 Other long term (current) drug therapy; Z88.8 Allergy status to other drugs, medicaments and biological substances; Z91.040 Latex allergy status
CPT/HCPCS: 36415; 74177; 76856; 80053; 81001; 81025; 83690; 84702; 85025; 87086; 87186; 96374; 96375; 96376; 99285; J2270; J2405; J7030; Q0092; Q9967; 81002

== ENCOUNTER 2020-03-15 05:30 | Emergency (ER) | payer OTHER ==
[~2020-03-15] VITALS: Ht 157.5 cm; Wt 54.4 kg
[2020-03-15 05:30] VITALS: BP 97/64
[~2020-03-15 05:30] MED LIST changes: +ACET-8386 PO; +ACET-9234 PO; +CALER180 PO; +CLON2TAB PO; +LEVE1000 PO; +RANI150C PO; +SINE25 PO; +SUVO20TA PO
[2020-03-15] MEDS ORDERED: MORPHINE SULFATE 4 MG/ML SYR IVP ONE (05:55)
[2020-03-15] MEDS ORDERED: ONDANSETRON 4 MG/2 ML VIAL IVP ONE (05:55)
[2020-03-15 06:49] VITALS: BP 97/64
== END 2020-03-15 06:49 | disposition home or self-care (01) ==
LOC: MED 05:30
DX: S73.101A Unspecified sprain of right hip, initial encounter (principal); L23.0 Allergic contact dermatitis due to metals; R56.9 Unspecified convulsions; Z88.8 Allergy status to other drugs, medicaments and biological substances; Z88.6 Allergy status to analgesic agent; Z91.040 Latex allergy status; Z79.899 Other long term (current) drug therapy; W19.XXXA Unspecified fall, initial encounter; Y93.89 Activity, other specified; Y92.89 Other specified places as the place of occurrence of the external cause; Y99.8 Other external cause status
CPT/HCPCS: 73502; 81025; 96374; 96375; 99284; J2270; J2405; Q0092

== ENCOUNTER 2020-03-22 15:33 | Emergency (ER) | payer OTHER ==
[~2020-03-22] VITALS: Ht 172.7 cm; Wt 78.0 kg
[2020-03-22 15:52] VITALS: BP 125/69
[2020-03-22] MEDS ORDERED: MORPHINE SULFATE 4 MG/ML SYR IM ONE (17:05)
[2020-03-22 17:36] VITALS: BP 120/72
== END 2020-03-22 17:37 | disposition home or self-care (01) ==
LOC: MED 15:33
DX: S80.01XA Contusion of right knee, initial encounter (principal); K21.9 Gastro-esophageal reflux disease without esophagitis; F17.200 Nicotine dependence, unspecified, uncomplicated; Z86.69 Personal history of other diseases of the nervous system and sense organs; Z90.49 Acquired absence of other specified parts of digestive tract; Z98.890 Other specified postprocedural states; Z79.2 Long term (current) use of antibiotics; Z79.899 Other long term (current) drug therapy; Z79.891 Long term (current) use of opiate analgesic; Z91.040 Latex allergy status; Z91.048 Other nonmedicinal substance allergy status; Z88.6 Allergy status to analgesic agent; Z88.8 Allergy status to other drugs, medicaments and biological substances; Z91.09 Other allergy status, other than to drugs and biological substances; W18.39XA Other fall on same level, initial encounter; Y92.89 Other specified places as the place of occurrence of the external cause; Y93.89 Activity, other specified; Y99.8 Other external cause status
CPT/HCPCS: 73562; 96372; 99283; J2270; Q0092